=== PATIENT | female | born 1955 | race Asian ===

== ENCOUNTER 2024-03-26 07:33 | Day surgery (SDC) | payer OTHER ==
[2024-03-26] MEDS ORDERED: TROPICAMIDE 1% OPHTH SOLN 15 ML BOTTLE ONE (07:53)
[2024-03-26] MEDS ORDERED: OFLOXACIN 0.3% OPHTHALMIC SOLUTION 5 ML BOTTLE ONE (07:53)
[2024-03-26] MEDS ORDERED: CYCLOPENTOLATE HCL 1% OPHTH SOLN 2 ML BOTTLE ONE (07:54)
[2024-03-26] MEDS ORDERED: KETOROLAC TROMETHAMINE 0.5% EYE DROP 1 DROP DROPS ONE (07:54)
[2024-03-26] MEDS ORDERED: PHENYLEPHRINE 2.5% OPTHALMIC DROP 2ML BOTTLE ONE (07:54)
[2024-03-26] MEDS ORDERED: ACETAMINOPHEN 325 MG TABLET (FP) PO PRN (08:24)
[2024-03-26] MEDS ORDERED: POVIDONE-IODINE 5% OPHTHALMIC PREP 30 ML SOLUTION ONE (08:36)
[2024-03-26] MEDS ORDERED: BSS (NA/CA/MG/K) BALANCED SALT SOLUTION OPHTH SOLN 15 ML BOTTLE ONE (08:36)
[2024-03-26] MEDS ORDERED: BACITRACIN/POLYMYXIN OPH OINT 3.5 GM TUBE ONE (08:36)
[2024-03-26] MEDS ORDERED: BETAXOLOL HCL 0.25% OPHTHALMIC 10 ML DROPSBTL ONE (08:36)
[2024-03-26] MEDS ORDERED: NEO/POLYMYX B SULF/DEXAMETH OPHTHALMIC 5ML BOTTLE ONE (08:36)
[2024-03-26] MEDS ORDERED: TETRACAINE 0.5% OPHTH SOLN 2 ML BOTTLE ONE (08:36)
[2024-03-26] MEDS ORDERED: EPI-SHUGARCAINE (EPINEPHRINE 0.025% & LIDOCAINE-PF 0.75%) 4ML ONE (08:36)
[2024-03-26] MEDS ORDERED: MIDAZOLAM HCL 2 MG/2 ML SINGLE DOSE VIAL ONE (09:32)
[2024-03-26] MEDS ORDERED: TROPICAMIDE 1% OPHTH SOLN 15 ML BOTTLE OS SCH (12:00)
[2024-03-26] MEDS ORDERED: CYCLOPENTOLATE HCL 1% OPHTH SOLN 2 ML BOTTLE OS SCH (12:00)
[2024-03-26] MEDS ORDERED: KETOROLAC TROMETHAMINE 0.5% EYE DROP 1 DROP DROPS OS SCH (12:00)
[2024-03-26] MEDS ORDERED: OFLOXACIN 0.3% OPHTHALMIC SOLUTION 5 ML BOTTLE OS SCH (12:00)
[2024-03-26] MEDS ORDERED: PHENYLEPHRINE 2.5% OPHTH SOLN 15 ML BOTTLE OS SCH (12:00)
== END 2024-03-26 10:30 | disposition home or self-care (01) ==
LOC: FASU 07:33
PROVIDERS: ATTEND Ophthalmology
PROC: 08RK3JZ Replacement of Left Lens with Synthetic Substitute, Percutaneous Approach (ICD-10-PCS; principal; 2024-03-26 09:36)
DX: H25.12 Age-related nuclear cataract, left eye (principal)
CPT/HCPCS: 66984; V2632